=== PATIENT | female | born 2000 | race African-American/Black ===

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

== ENCOUNTER 2020-02-25 16:05 | Emergency (ER) | payer MEDICAID, OTHER ==
[~2020-02-25] VITALS: Ht 160 cm; Wt 74.8 kg
[~2020-02-25 16:05] MED LIST changes: +KEFLEX500 MG ORAL; +NKM
[2020-02-25 16:21] VITALS: BP 120/83
--- NOTE | 2020-02-25 16:49 | Emergency Room Report ---
History of Present Illness General Chief Complaint: General Complaint Source: Patient Present Illness HPI 20-year-old female presents to the emergency department complaining of intermittent hemoptysis that she describes as speckles of dark blood in sputum that she coughs up. Patient reports her symptoms have been ongoing for over a year. 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 She denies significant changes in weight or night sweats. She denies fevers or chills. She denies shortness of breath, wheezing or history of asthma/COPD. Patient denies pain. She denies chest pain or palpitations. No other aggravating or relieving factors. Allergies: Coded Allergies: No Known Allergies (Unverified , 06/21/14) COVID-19 Screening Contact w/high risk pt: No Experienced COVID-19 symptoms?: No COVID-19 Testing performed [employer]: Yes COVID-19 Screening: Negative COVID-19 COVID-19 Testing Source: 02/18 Patient History Past Medical History: see triage record Past Surgical History: none Pertinent Family History: none Last Menstrual Period: last month Now: No Reviewed Nursing Documentation: PMH: Agreed; PSxH: Agreed Nursing Documentation-PMH Past Medical History: No Stated History Review of Systems All Other Systems: negative except mentioned in HPI Physical Exam Vital Signs Date Time Temp Pulse Resp B/P (MAP) Pulse Ox O2 Delivery O2 Flow Rate FiO2 02/25/20 16:10 98.1 90 19 112/80 (91) 95 Room Air 02/25/20 16:21 98 Sp02 EP Interpretation: reviewed, normal General Appearance: no apparent distress, alert, GCS 15, non-toxic Head: normocephalic, atraumatic Eyes: bilateral eye normal inspection, bilateral eye PERRL ENT: hearing grossly normal, normal voice Neck: full range of motion Respiratory: chest non-tender, lungs clear, normal breath sounds, no respiratory distress, no accessory muscle use, no wheezing, speaking full sentences Cardiovascular #1: regular rate, rhythm, no edema Musculoskeletal: back normal, normal range of motion, gait/station normal, non- tender Neurologic: alert, motor strength/tone normal, oriented x3, sensory intact, responsive, speech normal Psychiatric: judgement/insight normal Skin: no rash, normal color Lymphatic: no adenopathy Medical Decision Making PA Attestation Dr. Kothari Is my supervising Physician whom patient management has been discussed with. Diagnostic Impression: Primary Impression: Simple chronic bronchitis ER Course Pt. presents to the ED c/o dry cough and chest congestion x 1 year. Ddx considered but are not limited to URI, pneumonia, PE, strep pharyngitis, meningitis, COVID-19 Vital signs: Pt.is afebrile VS are WNL H&PE are most consistent with bronchitis ORDERS: none required at this time, the diagnosis is clinical ED INTERVENTIONS: None required at this time. DISCHARGE: At this time pt. is stable for d/c to home. Will provide printed patient care instructions, and any necessary prescriptions. Care plan and follow up instructions have been discussed with the patient prior to discharge. Chest X-Ray Diagnostic Results Chest X-Ray Diagnostic Results : Chest X-Ray Ordered: Yes # of Views/Limited/Complete: 1 View Indication: Other - chronic cough w. blood in sputum EP Interpretation: Yes PA Xray: Interpretation reviewed, by supervising MD, and agrees with findings. Interpretation: no consolidation, no effusion, no pneumothorax, no acute cardiopulmonary disease Impression: No acute disease Electronically Signed by: Ankita King PA-C Last Vital Signs Date Time Temp Pulse Resp B/P (MAP) Pulse Ox O2 Delivery O2 Flow Rate FiO2 02/25/20 16:21 91 18 Room Air 98 02/25/20 16:21 98.1 120/83 98 Status: improved Disposition: HOME, SELF-CARE Condition: Stable Scripts Guaifenesin (Mucinex) 1,200 Mg Tab.er.12h 1200 MG PO BID for 10 Days, #20 TAB Prov: Ankita King 02/25/20 Cetirizine Hcl (ZyrTEC*) 10 Mg Tablet 10 MG PO DAILY for Allergies, #30 TAB Prov: Ankita King 02/25/20 Referrals: [facility],REFERRING (PCP) Tesfaye Kelly [facility]. [facility] Patient Instructions: Chronic Bronchitis Additional Instructions: Take medications as directed. Follow up with a Primary Care Provider in 3-5 days, even if your symptoms have resolved. --Please review list of primary care clinics, if you do not already have a primary care provider Return sooner to ED if new symptoms occur, or current symptoms become worse. - Please note that this Emergency Department Report was dictated using [employer] sharepoint architect technology software, occasionally this can lead to erroneous entry secondary to interpretation by the dictation equipment. Ankita King Feb 25, 2020 16:49
[2020-02-25] MEDS ORDERED: MUCINEX1200 MG PO (16:50)
[2020-02-25] MEDS ORDERED: CETIRIZINE HCL10 MG PO (16:50)
[2020-02-25 16:56] VITALS: BP 126/79
--- NOTE | 2020-02-25 18:43 | Diagnostic Imaging Report ---
EXAM: XR Chest, 1 View CLINICAL HISTORY: PAIN TECHNIQUE: Frontal view of the chest. COMPARISON: Chest x-ray date 06/21/2014 FINDINGS: Lungs: Unremarkable. Pleural space: Unremarkable. Heart: Unremarkable. Mediastinum: Unremarkable. Bones/joints: Unremarkable. IMPRESSION: Normal chest x-ray.
== END 2020-02-25 16:57 | disposition home or self-care (01) ==
LOC: EMR 16:27
DX: J41.0 Simple chronic bronchitis (principal); F17.200 Nicotine dependence, unspecified, uncomplicated
CPT/HCPCS: 71045; Z7502; 99283